=== PATIENT | female | born 1975 | race Caucasian/White ===

== ENCOUNTER 2025-02-06 08:18 | Inpatient (IN) ==
--- NOTE | 2025-02-06 08:57 | XRay Report ---
LEFT KNEE 3 VIEWS CLINICAL HISTORY: Fall with left knee injury. Decreased range of motion. FINDINGS: AP, crosstable lateral, and sunrise views of the left knee are obtained. No prior studies a re available for comparison at the time of dictation. The skeletal structures are well-mineralized. T here is a nondisplaced longitudinal fracture through the distal shaft of the femur which extends from the metadiaphysis to the articular surface at the intercondylar notch. There is associated joint eff usion with lipohemarthrosis. No additional fracture is seen at the knee joint. The joint spaces are m aintained. IMPRESSION: Nondisplaced longitudinal intra-articular fracture of the distal femur as above with asso ciated joint effusion/lipohemarthrosis. Electronically signed by: Moses Roca M.D. 02/06/2025 8:56 AM
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
[2025-02-06] MEDS: ACETAMINOPHEN 1,000 MG/100 ML VIAL IV STA (09:45)
[2025-02-06] MEDS ORDERED: ONDANSETRON INJ 2 MG/ML 2 ML VIAL IV PRN (10:36)
[2025-02-06 11:01] LABS: Anion Gap 5.0 (3-11); Blood Urea Nitrogen 8.0 mg/dl (6-23); Calcium 8.8 mg/dl (8.6-10.3); Carbon Dioxide 31.0 mmol/L (21-32); Chloride 101.0 mmol/L (98-107); Creatinine Clr Calc Pharmacy 106.6 ml/min; Glucose 116.0 mg/dl (70-99(Fasting)); Potassium 2.8 mmol/L (3.5-5.1); Sodium 137.0 mmol/L (136-145)
[2025-02-06 11:03] LABS: Appearance Urine Turbid (Clear); Bacteria Urine Automated None Seen (None Seen); Epithelial Cell Urine Auto 0-2 /hpf (0-2); Glucose Urine UA Negative (Negative); WBC Urine Automated 0-5 /hpf (0-5)
[2025-02-06 11:15] LABS: Cast Urine Automated 0-2 /lpf (0-2)
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
[2025-02-06] MEDS: MoRPHine SULFATE 4 MG/ML 1 ML CARP\\VIAL IV PRN (12:03)
[2025-02-06] MEDS: HEPARIN SOD 5,000 UNIT/0.5 ML VIAL SQ SCH (14:08)
--- NOTE | 2025-02-06 15:39 | CT Scan Report ---
CT left knee without contrast History: Pain/weakness Comparison: None Technique: CT performed of the extremity without IV contrast.3D reconstructions performed. Dose reduction techniques were achieved by using automatic exposure control and/or adjustment of mA and/or kV according to patient size and/or use of iterative reconstruction technique. Findings: There is a thin, vertically oriented, nondisplaced fracture through the distal femur about the right paramedian aspect of the femoral intercondylar notch, and extending proximally into the cortex at the medial metadiaphyseal junction. Joint spaces are normally aligned. There is a large lipohemarthrosis. Extensive blood products and/or edema seen throughout the popliteal fossa. No aggressive osseous lesion. Impression: Nondisplaced, vertically oriented fracture through the intercondylar notch, extending proximally into the medial metadiaphyseal junction. Large lipohemarthrosis. Electronically signed by Jose G Johnson 02-06-2025 3:39 PM
[2025-02-06 16:16] VITALS: RESP 18
[2025-02-06] MEDS: POTASSIUM CHLORIDE / WTR 10 MEQ/100 ML PLCT IV SCH (17:48)
[2025-02-06] MEDS: ACETAMINOPHEN 325 MG TAB PO PRN (19:28)
[2025-02-06] MEDS: ESCITALOPRAM OXALATE 10 MG TAB PO SCH (20:54)
[2025-02-07 07:00] LABS: Hematocrit (blood only) 34.8 % (37.0-47.0); Hemoglobin 11.7 g/dl (12.0-16.0); Mean Corpuscular Hemoglobin 29.0 pg (25.0-34.0); Mean Corpuscular Volume 86.4 fL (80.0-100.0); Platelet Count 212 K/uL (130-400); RDW Standard Deviation 40.7 fL (36.4-46.3); Red Blood Count 4.03 M/uL (4.20-5.40); White Blood Count 9.23 K/ul (4.8-10.8)
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
[2025-02-07] MEDS: ACETAMINOPHEN 500 MG TAB PO PRN (08:32)
[2025-02-07 09:15] LABS: Anion Gap 6.0 (3-11); Blood Urea Nitrogen 6.0 mg/dl (6-23); Calcium 8.3 mg/dl (8.6-10.3); Carbon Dioxide 29.0 mmol/L (21-32); Chloride 103.0 mmol/L (98-107); Creatinine Clr Calc Pharmacy 125.6 ml/min; Glucose 106.0 mg/dl (70-99(Fasting)); Potassium 3.4 mmol/L (3.5-5.1); Sodium 138.0 mmol/L (136-145)
[2025-02-07] MEDS: METHOCARBAMOL 500 MG TABLET PO SCH (09:36)
[2025-02-07] MEDS: cefTRIAXone SODIUM 1,000 MG/50 ML BAG IV SCH (09:37)
[2025-02-07] MEDS: HEPARIN SOD 5,000 UNIT/0.5 ML VIAL SQ SCH (09:49)
[2025-02-07] MEDS: POTASSIUM CHLORIDE CRTAB 20 MEQ TABCR PO STA (11:27)
--- NOTE | 2025-02-07 12:10 | Hospitalist Progress Note ---
Date of Service February 07, 2025 Assessment & Plan (1) Fracture of ankle, medial malleolus, closed: (2) Fracture of distal end of fibula: (3) Depression with anxiety: Plan This is a 49 year old female with past medical history of anxiety who presented to the ED on 02/06/2025 following a fall at home. #right ankle fx/ left distal femur fx originally presented to ED earlier in day on 02/06 following a fall where she fractured her right ankle. Went home following ER trip & came back due to a fall at home where she fractured her left distal femur Right ankle fx: acute nondisplaced fracture through base of medial malleolus; acute to subacute horizontal fx thorough lateral malleolus; associated joint effusion & overlying soft tissue edema. Left Knee XR: nondisplaced longitudinal intra-articular fx of distal femur. Left Knee CT: nondisplaced vertically oriented fx through intercondylar notch extending proximally into medial metadiaphyseal junction. large lipohemarthrosis. Ortho consulted: partial weight bearing of right LE and non weight bearing of left LE. Right ankle splint + left knee immobilizer Pain management: scheduled Robaxin 500mg TID; Tylenol 1000mg q8h. PRN: oxycodone, Toradol PT/OT consulted, appreciate recommendations. Check AM vitamin D levels --> recommend outpatient Dexa scan given 2 fractures secondary ground level falls. #UTI UA mildly infectious appearing UC prelim negative given symptoms including dysuria + mild fever - treat for uncomplicated UTI course w/ Rocephin #Hypokalemia K 2.8 on admission s/p repletion Improvement to 3.4, s/p repletion AM BMP #Anxiety - lexapro DVT prophylaxis: Heparin Code: full Admission and Anticipated Discharge Date Admission Date: February 06, 2025 Supervising Physician Co-Signing Physician Notes The patient was not seen by me. The chart was reviewed. Case discussed with OSMEL Monae. Agree with assessment and plan Micheal Delarosa was seen and examined this morning. She reports that she is having pain in her lower extremities secondary to the fractures. She reports that she would not like to use IV narcotics and would prefer PO pain medication if able. Reports she has been having a few weeks worth of dysuria. Physical Exam Constitutional: WD/WN, vitals as above Eyes: PERRL, conjunctivae normal, anicteric sclerae Respiratory: normal respiratory effort, lungs clear to auscultation Cardiovascular: RRR, no murmur, no edema Skin: no rashes, warm and dry Neurologic: PERRL, EOMI, accommodation nl, no face palsy, no dysarthria Psychiatric: A+Ox3, euthymic affect Results & Data Results & Data Vital Signs (Past 12 Hours) Vital Signs Temp Pulse Resp BP Pulse Ox O2 Del Method 02/07/25 09:36 37.3 C 02/07/25 08:16 38.2 C H 02/07/25 07:51 38 C H 91 H 18 119/71 96 Room Air PG Care Time/CCT Total # of Minutes Spent Total Time Spent with Patient: Total time spent is greater than 50% in coordination of care (as documented) at patient's floor/unit and/or counseling patient: Coding Level of Care Code 14626 SUB INP/OBS CARE 2/35MIN Diagnoses Fracture of ankle, medial malleolus, closed S82.53XA Fracture of distal end of fibula S82.839A Depression with anxiety F41.8
[2025-02-07] MEDS ORDERED: Nursing to Pharmacy Communication SCH (13:00)
[2025-02-07] MEDS: KETOROLAC TROMETHAMINE 15 MG/ML VIAL IV PRN (13:42)
[2025-02-07] MEDS: ACETAMINOPHEN 500 MG TAB PO SCH (16:53)
[2025-02-07 19:17] VITALS: TEMP 98.1
[2025-02-07] MEDS: MoRPHine SULFATE 4 MG/ML 1 ML CARP\\VIAL IV STA (22:40)
[2025-02-08 06:26] LABS: Hematocrit (blood only) 33.9 % (37.0-47.0); Hemoglobin 11.6 g/dl (12.0-16.0); Mean Corpuscular Hemoglobin 29.9 pg (25.0-34.0); Mean Corpuscular Volume 87.4 fL (80.0-100.0); Platelet Count 197 K/uL (130-400); RDW Standard Deviation 41.1 fL (36.4-46.3); Red Blood Count 3.88 M/uL (4.20-5.40); White Blood Count 7.44 K/ul (4.8-10.8)
[2025-02-08 06:55] LABS: Anion Gap 5.0 (3-11); Blood Urea Nitrogen 9.0 mg/dl (6-23); Calcium 8.7 mg/dl (8.6-10.3); Carbon Dioxide 31.0 mmol/L (21-32); Chloride 103.0 mmol/L (98-107); Creatinine Clr Calc Pharmacy 108.2 ml/min; Glucose 101.0 mg/dl (70-99(Fasting)); Magnesium 1.8 mg/dl (1.7-2.4); Potassium 3.3 mmol/L (3.5-5.1); Sodium 139.0 mmol/L (136-145)
[2025-02-08] MEDS: CHOLECALCIFEROL 125 MCG (5,000 UNITS) TAB PO SCH (09:45)
[2025-02-08] MEDS: POTASSIUM CHLORIDE CRTAB 20 MEQ TABCR PO STA (09:45)
--- NOTE | 2025-02-08 11:05 | Hospitalist Progress Note ---
Date of Service February 08, 2025 Assessment & Plan (1) Fracture of ankle, medial malleolus, closed: (2) Fracture of distal end of fibula: (3) Depression with anxiety: Plan This is a 49 year old female with past medical history of anxiety who originally presented to ED earlier in day on 02/06 following a fall where she fractured her right ankle. Went home following ER trip & came back due to a fall at home where she fractured her left distal femur. Imaging confirms these findings. Right ankle fx: acute nondisplaced fracture through base of medial malleolus; acute to subacute horizontal fx thorough lateral malleolus; associated joint effusion & overlying soft tissue edema. Left Knee XR: nondisplaced longitudinal intra- articular fx of distal femur. Left Knee CT: nondisplaced vertically oriented fx through intercondylar notch extending proximally into medial metadiaphyseal ju nction. large lipohemarthrosis. #right ankle fx/ left distal femur fx Ortho consulted: partial weight bearing of right LE and non weight bearing of left LE. --> Right ankle splint + left knee immobilizer Pain management: scheduled Robaxin 500mg TID; Tylenol 1000mg q8h. PRN: oxycodone, Toradol PT/OT consulted, Recommend home with manual w/c with elevating leg rests and r emovable arm rests, drop-arm bedside commode, and transfer (slide) board Vitamin D level <7, po supplementation started. Recommend outpatient Dexa scan given 2 fractures secondary ground level falls. Patient can't use a walker or cane safely at this time due to right ankle fracture and left femur fracture diagnosis. She is toe touch weight bearing to right LE and non-weight bearing of left LE. A wheelchair would improve ADL's within the home - prevent falls and prevent inpatient rehab stay. #UTI UA mildly infectious appearing, UC with less than < 1,000 colonies. given symptoms including dysuria + mild fever - treat for uncomplicated UTI with rocephin #Hypokalemia K 2.8 on admission s/p repletion 3.3 today - given PO repetion AM BMP #Anxiety - lexapro DVT prophylaxis: Heparin dispo: inpatient stay until equipment can be set up at home for safe discharge. follow ups at discharge: ortho Admission and Anticipated Discharge Date Admission Date: February 06, 2025 Subjective Patient seen resting in bed this morning - alittle sore after working with PT and OT, but pain is manageable. discussed vit D level has not moved bowels in a few days but reports this is normal for her - discussed constipation with opioid use Review of Systems Review of Systems: All systems reviewed & are unremarkable except as noted in Subjective Physical Exam Physical Exam: General: NAD, VS as above Resp: normal respiratory effort, lungs clear to auscultation CV: RRR, no murmur, Abd: normal bowel sounds, non tender, no hepatosplenomegaly Extremities: right ankle splint in place, left knee immobilizer in place - able to wiggle toes bilaterally Neuro: A&O x3, Results & Data Results & Data Vital Signs (Past 12 Hours) Vital Signs Temp Pulse Resp BP Pulse Ox O2 Del Method 02/08/25 07:23 98.1 F 72 18 136/76 98 Room Air Laboratory Results cbc, chemistry and vit D reviewed PG Care Time/CCT Total # of Minutes Spent Total Time Spent with Patient: Total time spent is greater than 50% in coordination of care (as documented) at patient's floor/unit and/or counseling patient: Coding Level of Care Code 44993 SUB INP/OBS CARE 2/35MIN Diagnoses Fracture of ankle, medial malleolus, closed S82.53XA Fracture of distal end of fibula S82.839A Depression with anxiety F41.8
--- NOTE | 2025-02-08 14:16 | Discharge Summary ---
Discharge Summary Date of Service February 08, 2025 Principal Dx & Hospital Course #1 = Principal Diagnosis (1) Fracture of ankle, medial malleolus, closed: (2) Fracture of distal end of fibula: (3) Depression with anxiety: Plan #right ankle fx/ left distal femur fx This is a 49 year old female with past medical history of anxiety who originally presented to ED earlier in day on 02/06 following a fall where she fractured her right ankle. Went home following ER trip & came back due to a fall at home where she fractured her left distal femur. Imaging confirms these findings. Right ankle fx: acute nondisplaced fracture through base of medial malleolus; acute to subacute horizontal fx thorough lateral malleolus; associated joint effusion & overlying soft tissue edema. Left Knee XR: nondisplaced longitudinal intra- articular fx of distal femur. Left Knee CT: nondisplaced vertically oriented fx through intercondylar notch extending proximally into medial metadiaphyseal junction. large lipohemarthrosis. Ortho consulted: partial weight bearing of right LE and non weight bearing of left LE. --> Right ankle splint + left knee immobilizer Pain management: scheduled Robaxin 500mg TID; Tylenol 1000mg q8h. PRN: oxycodone, Toradol PT/OT consulted, Recommend home with manual w/c with elevating leg rests and removable arm rests, drop-arm bedside commode, and transfer (slide) board Vitamin D level <7, po supplementation started. Recommend outpatient Dexa scan given 2 fractures secondary ground level falls. Patient can't use a walker or cane safely at this time due to right ankle fracture and left femur fracture diagnosis. She is toe touch weight bearing to right LE and non-weight bearing of left LE. A wheelchair would improve ADL's within the home - prevent falls and prevent inpatient rehab stay. #UTI UA mildly infectious appearing, UC with less than < 1,000 colonies. given symptoms including dysuria + mild fever - treat for uncomplicated UTI with rocephin - one more day of PO antibiotics. #Hypokalemia - K 2.8 on admission s/p repletion. 3.3 today - given PO repletion P #Anxiety - lexapro dispo: discharge to home today, outpatient PT rx given follow ups at discharge: ortho Notes For Next Care Provider recommend osteoperosis workup Admission HPI Per Admitting Provider Pt is a 49 y/o female with pmh of depression who twisted her right ankle while working last night at [employer] [employer] [employer]. She felt a "pop." She was brought down to the ER, XR showed right bimalleolar ankle fracture and she was discharged home after having ankle splint placed. Pt returned home and fell again walking down steps. She injured her left ankle. XR in the ER showed distal femur fx. Knee immobilizer was placed. Pt is being admitted for ambulatory dysfunction and orthopedic follow up. Discharge Exam General: NAD, VS as above Resp: normal respiratory effort, lungs clear to auscultation CV: RRR, no murmur, Abd: normal bowel sounds, non tender, no hepatosplenomegaly Extremities: left knee imbolizer in place, right ankle splint in place Neuro: A&O x3, Skin: intact, no lesions noted Discharge Plan Discharge Items Patient Disposition: Home - Self-Care Reason For Visit: B/L FRACTURES, ABULATORY DYSFUNCTION Discharge Diagnosis: right ankle fracture, left distal femur fracture Condition on Discharge: Fair Activity: As commented below Driving/Machine Use: no driving until cleared by orthopedic Weightbearing: Left non-weightbearing and Right toe touch Non-emergency contact: Primary Care Provider and Specialist Call non-emergency contact if: you have any medication questions, your symptoms worsen and your temperature is above 101 Follow-up/Referrals: Constanza Fabian MD [Physician] - Justo Rodriguez DO [Physician] - ( follow-up in 1 to 2 weeks for repeat x- rays) Dustin Ambrosio CRNP [Primary Care Provider] - ( follow-up within 1 week) Diet: Regular Addtl Attending Provider Instructions: Ms. Bonner you were hospitalized after a fall that resulted in a fracture of your left distal femur after your right ankle was already fractured. You were seen by orthopedics who did not recommend surgery at this time, continue partial weightbearing and right ankle splint on the right side. Continue nonweightbearing and knee immobilizer on the left side. You are to follow-up with orthopedics in 1 to 2 weeks for repeat x-rays. A prescription has been provided for you to engage in outpatient physical therapy. It has been ordered to make your home more accessible. pain control with as needed Tylenol, and oxycodone. Robaxin added as well. Monitor for constipation with opioid use. Your vitamin D level was less than 7, oral supplementation has been started. You need to follow-up with your PCP regarding this and check testing done for osteoporosis/osteopenia. You will have 1 additional day of oral antibiotics for your UTI. Please follow-up with your PCP within 1 week. CONTACT YOUR PRIMARY CARE PROVIDER if you experience any of the following: Shortness of breath or difficulty breathing Fevers or chills Feeling tired with normal activity or experiencing dizziness or fainting Difficulty following your treatment plan, or difficulty taking medications CALL 911 OR GO TO THE EMERGENCY DEPARTMENT if you experience any of the following: Severe abdominal pain or nausea/vomiting Severe chest pain, or chest pain that radiates (moves) to your jaw or arm Sudden, severe shortness of breath or difficulty breathing Thank you for allowing us to participate in your care. Addtl Draw Bench Operator Provider Instructions: Right ankle fracture * Maintain splint * Partial weight bearing, ok for balance and pivoting, axial loading * F/u in office for repeat XR and casting Left femur fracture * Maintain knee immobilizer brace * Non-weight bearing left leg * F/u office for repeat XR Pending Studies at Discharge: No Stand-Alone Forms: [employer], Work/School Release, Smoking C essation Medications and DC Order Prescriptions: New methocarbamol 500 mg Tablet 500 mg PO TID PRN (Reason: Spasms) Qty: 30 0RF oxycodone 5 mg Tablet 5 mg PO Q4H PRN (Reason: pain) Qty: 10 0RF cholecalciferol (vitamin D3) 125 mcg (5,000 unit) Tablet 125 mcg PO QAM Qty: 30 0RF acetaminophen [Tylenol Extra Strength] 500 mg Tablet 1,000 mg PO Q8H PRN (Reason: Pain) Qty: 10 0RF Continued escitalopram oxalate [Lexapro] 5 mg Tablet 5 mg PO QPM Discontinued oxycodone 5 mg tablet 5 mg PO Q8H PRN (Reason: pain) Qty: 10 0RF Patient Comments: Pt hasn't started yet, was sent to pharmacy earlier today (02/06/25) then pt was admitted. 02/06/25 Discharge Orders: Discharge Order (Routine); Ordered 02/08/25 Ordered By: Grace Florez/Other Patient Handouts: How [employer] He[employer] Admission Data Admit Date/Time: 02/06/25 10:36 Attending Provider: Janet Baxter Admit Provider: Vahid Boyce Primary Care Provider: Dustin Ambrosio Other Providers: Vahid Boyce; Justo Rodriguez Hospital Stay Data Consultations 02/06/25 09:33 ED Decision to Admit Stat 02/06/25 11:23 Consult Orthopedic Surgery Stat Diagnostic Imagining Performed 02/06/25 14:50 CT knee LT wo con Stat Pending Results Patient Have Any Pending Studies at Discharge: No Discharge Instructions Given to Patient (Per Discharging Provider) Ms. Bonner you were hospitalized after a fall that resulted in a fracture of your left distal femur after your right ankle was already fractured. You were seen by orthopedics who did not recommend surgery at this time, continue partial weightbearing and right ankle splint on the right side. Continue nonweightbearing and knee immobilizer on the left side. You are to follow-up with orthopedics in 1 to 2 weeks for repeat x-rays. A prescription has been provided for you to engage in outpatient physical therapy. It has been ordered to make your home more accessible. pain control with as needed Tylenol, and oxycodone. Robaxin added as well. Monitor for constipation with opioid use. Your vitamin D level was less than 7, oral supplementation has been started. You need to follow-up with your PCP regarding this and check testing done for osteoporosis/osteopenia. You will have 1 additional day of oral antibiotics for your UTI. Please follow-up with your PCP within 1 week. CONTACT YOUR PRIMARY CARE PROVIDER if you experience any of the following: Shortness of breath or difficulty breathing Fevers or chills Feeling tired with normal activity or experiencing dizziness or fainting Difficulty following your treatment plan, or difficulty taking medications CALL 911 OR GO TO THE EMERGENCY DEPARTMENT if you experience any of the following: Severe abdominal pain or nausea/vomiting Severe chest pain, or chest pain that radiates (moves) to your jaw or arm Sudden, severe shortness of breath or difficulty breathing Thank you for allowing us to participate in your care. Total Time Total Time Spent Total Time Spent (In Minutes): Time spent day of discharge 35 minutes including direct patient care, medication reconciliation, documentation, review of labs and images, and coordination of care. case discussed with CM Coding Level of Care Code 91335 INP/OBS DISCH >30 MIN Diagnoses Fracture of ankle, medial malleolus, closed S82.53XA Fracture of distal end of fibula S82.839A Depression with anxiety F41.8
[2025-02-08 15:15] VITALS: BP 111/68; PULSE 74; O2SAT 96
== END 2025-02-08 18:27 | disposition home or self-care (01) | DRG 534 ==
LOC: ED 08:18 → EDINP 10:36 → SUATTDRO 10:36 → 3W 15:29
DX: E87.6 Hypokalemia; Y92.009 Unspecified place in unspecified non-institutional (private) residence as the place of occurrence of the external cause; F32.A Depression, unspecified; S82.841A Displaced bimalleolar fracture of right lower leg, initial encounter for closed fracture; N39.0 Urinary tract infection, site not specified; Y92.239 Unspecified place in hospital as the place of occurrence of the external cause; F41.9 Anxiety disorder, unspecified; S72.402A Unspecified fracture of lower end of left femur, initial encounter for closed fracture; Y93.01 Activity, walking, marching and hiking; X50.9XXA Other and unspecified overexertion or strenuous movements or postures, initial encounter; Y99.8 Other external cause status; Z88.6 Allergy status to analgesic agent; Y99.0 Civilian activity done for income or pay; Z79.899 Other long term (current) drug therapy; W10.9XXA Fall (on) (from) unspecified stairs and steps, initial encounter; Z91.013 Allergy to seafood